=== PATIENT | female | born 1955 | race Caucasian/White ===

== ENCOUNTER 2016-12-20 08:41 | Inpatient (IN) | payer BC ==
[~2016-12-20] VITALS: Ht 157.5 cm; Wt 61.0 kg
[2016-12-20] MEDS ORDERED: HYDROmorphONE 1 MG/ML SYG IV STA ×2 (09:07→10:41)
[2016-12-20] MEDS ORDERED: ONDANSETRON 4 MG INJ IV STA ×2 (09:07→10:41)
[2016-12-20] MEDS ORDERED: SOD CHLORIDE 0.9% 500 ML IV STA (09:07)
--- NOTE | 2016-12-20 09:52 | RADRPT ---
PROCEDURE: XR Chest. CLINICAL INDICATION: Abdominal Pain TECHNIQUE: PA and Lateral views of the chest were obtained. COMPARISON: None. FINDINGS: The cardiomediastinal silhouette is within normal limits. The lungs are clear. No signs of pleural f luid or pneumothorax are seen. The osseous structures and soft tissues are unremarkable. IMPRESSION: No evidence for active cardiopulmonary disease. Physician Benedict Date Time Electronically viewed and signed by Kong Jaquez Physician on 12/20/2016 09:52 ML/
--- NOTE | 2016-12-20 10:20 | RADRPT ---
PROCEDURE: Right upper quadrant abdominal ultrasound. CLINICAL INDICATION: Abdominal pain TECHNIQUE: Barney scale and color doppler ultrasound images of the right upper quadrant of the abdom en. COMPARISON: None FINDINGS: Pancreas: Visualized portions appear of normal echogenicity without focal lesions. Liver: Morphology: The right lobe of the liver is elongated measuring up to 17.9 cm which may reflect Ried el's lobe configuration. Contour:Normal, no evidence of nodularity. Echogenicity: Normal. Focal lesions:None. Main portal vein: Patent with hepatopetal flow. Biliary System: Gallbladder wall: Normal thickness. Gallstones: None. Intrahepatic bile ducts: Normal caliber. Common bile duct diameter (mm): 4.7 Kidneys: Right length (cm) : 9.5 Right cortical thickness: Normal. Echogenicity: Normal. Hydronephrosis: None. Renal calculi: None. Focal lesions: None. Free fluid/ascites: None. Abdominal aorta: Not visualized by the vacuum forming machine operator. Other findings: None. IMPRESSION: Normal gallbladder without gallstones. Normal examination. RPTAT: AADD .Philip Reis MD, MD Date Time Electronically viewed and signed by .Philip Reis MD, MD on 12/20/2016 10:19 .B/
--- NOTE | 2016-12-20 10:20 | RADRPT ---
PROCEDURE: Right upper quadrant abdominal ultrasound. CLINICAL INDICATION: Abdominal pain TECHNIQUE: Barney scale and color doppler ultrasound images of the right upper quadrant of the abdom en. COMPARISON: None FINDINGS: Pancreas: Visualized portions appear of normal echogenicity without focal lesions. Liver: Morphology: The right lobe of the liver is elongated measuring up to 17.9 cm which may reflect Ried el's lobe configuration. Contour:Normal, no evidence of nodularity. Echogenicity: Normal. Focal lesions:None. Main portal vein: Patent with hepatopetal flow. Biliary System: Gallbladder wall: Normal thickness. Gallstones: None. Intrahepatic bile ducts: Normal caliber. Common bile duct diameter (mm): 4.7 Kidneys: Right length (cm) : 9.5 Right cortical thickness: Normal. Echogenicity: Normal. Hydronephrosis: None. Renal calculi: None. Focal lesions: None. Free fluid/ascites: None. Abdominal aorta: Not visualized by the sectional belt mold assembler. Other findings: None. IMPRESSION: Normal gallbladder without gallstones. Normal examination. RPTAT: AADD .Philip Reis MD, MD Date Time Electronically viewed and signed by .Philip Reis MD, MD on 12/20/2016 10:19 .B/
--- NOTE | 2016-12-20 10:20 | RADRPT ---
PROCEDURE: Right upper quadrant abdominal ultrasound. CLINICAL INDICATION: Abdominal pain TECHNIQUE: Barney scale and color doppler ultrasound images of the right upper quadrant of the abdom en. COMPARISON: None FINDINGS: Pancreas: Visualized portions appear of normal echogenicity without focal lesions. Liver: Morphology: The right lobe of the liver is elongated measuring up to 17.9 cm which may reflect Ried el's lobe configuration. Contour:Normal, no evidence of nodularity. Echogenicity: Normal. Focal lesions:None. Main portal vein: Patent with hepatopetal flow. Biliary System: Gallbladder wall: Normal thickness. Gallstones: None. Intrahepatic bile ducts: Normal caliber. Common bile duct diameter (mm): 4.7 Kidneys: Right length (cm) : 9.5 Right cortical thickness: Normal. Echogenicity: Normal. Hydronephrosis: None. Renal calculi: None. Focal lesions: None. Free fluid/ascites: None. Abdominal aorta: Not visualized by the multi punch operator. Other findings: None. IMPRESSION: Normal gallbladder without gallstones. Normal examination. RPTAT: AADD .Philip Reis MD, MD Date Time Electronically viewed and signed by .Philip Reis MD, MD on 12/20/2016 10:19 .B/
[2016-12-20] MEDS ORDERED: SIMV20TA PO (10:53)
[2016-12-20] MEDS ORDERED: MIRA50TA PO (10:53)
[2016-12-20] MEDS ORDERED: LEVO50TA83 PO (10:53)
[2016-12-20] MEDS ORDERED: BUPR200T2 PO (10:53)
[2016-12-20] MEDS ORDERED: ESTR-19 PO (10:54)
[2016-12-20] MEDS ORDERED: ASPI81TA3 PO (10:54)
[2016-12-20] MEDS ORDERED: IOHEXOL 300MG/ML 150 ML BTL ONE (11:29)
[2016-12-20] MEDS ORDERED: SOD CHLORIDE 0.9% 100 ML ONE (11:29)
[2016-12-20] MEDS ORDERED: DIPHENHYDRAMINE 50 MG INJ IV ONE (11:30)
--- NOTE | 2016-12-20 11:59 | RADRPT ---
PROCEDURE: CTA Chest with contrast and with 3-D reconstructions CLINICAL INDICATION: Chest pain, right flank pain, pulmonary emboli TECHNIQUE: The study was performed utilizing multidetector CT scanner. Direct spiral axial section s were obtained from the thoracic inlet to the upper abdomen with the use of intravenous contrast ma terial (100 cc of Omnipaque-300). Sagittal, coronal and 3-D reformations were obtained. The images w ere reviewed on a PACS workstation. DLP 707.64 mGycm CTDIvol 16.90, 9.79, 6.18 mGy One or more of the following dose reduction techniques were used: - Automated exposure control. - Adjustment of the mA and/or kV according to patient size. - Use of iterative reconstruction technique. COMPARISON: No prior studies are available for comparison. FINDINGS: There are no pulmonary emboli. There is a 1 cm left thyroid hypodensity. The lungs are clear. There is a 3 mm subpleural right upper lobe nodule on series 3, image 70 latera lly. There is a 3 mm right perifissural nodule on image 130. There is minimal pulmonary vascular con gestion. There is no pleural fluid. There is no pneumothorax. Heart size is within normal limits. There is no pericardial fluid. The aorta is within normal limi ts. There are no enlarged axillary or mediastinal lymph nodes. The visualized portions of the upper abdomen are unremarkable. Osseous and soft tissue structures are within normal limits. IMPRESSION: No CT evidence for pulmonary embolus. Minimal pulmonary vascular congestion. 3 mm right lung nodules are noted. 1 cm left thyroid hypodensity can be further evaluated with a non emergent thyroid sonogram. RPTAT: EE Physician Leonel Date Time Electronically viewed and signed by Jony Mcmillan Physician on 12/20/2016 11:59 /
--- NOTE | 2016-12-20 12:18 | RADRPT ---
PROCEDURE: CT abdomen and pelvis with contrast and with 3-D reconstructions CLINICAL INDICATION: Right flank pain TECHNIQUE: CT scan of the abdomen and pelvis with intravenous (100 cc of Omnipaque-300) contrast w as performed on a multislice CT scanner. 3-D sagittal and coronal reformatted images were obtained f rom the axial source images. DLP 707.64 mGycm CTDIvol 16.90, 9.79, 6.18 mGy One or more of the following dose reduction techniques were used: - Automated exposure control. - Adjustment of the mA and/or kV according to patient size. - Use of iterative reconstruction technique. COMPARISON: None. FINDINGS: The visualized lung bases are unremarkable. The liver is homogenous in attenuation. There are no focal liver lesions. There is no intrahepatic or extrahepatic biliary ductal dilatation. The gallbladder is within normal limits. The spleen, pancreas, and adrenal glands are within normal limits. The kidneys are symmetric and without focal lesions. There are no renal calculi. There is no obstruc tive uropathy. There are no dilated or thickened loops of small bowel. The appendix is within normal limits. There are colonic diverticula without evidence of diverticulitis. There is nonspecific mild thickening of the mendoza of the transverse colon which begins at the hepatic flexure and ends at the splenic flexur e. The aorta is within normal limits. There are no enlarged mesenteric, periaortic, or retroperitoneal lymph nodes. The bladder is within normal limits. There is no free air. There is no free fluid. There are no enlarged intrapelvic or inguinal lymph nodes. Osseous and soft tissue structures are unremarkable. IMPRESSION: Mild nonspecific thickening of the mendoza of the transverse colon suggests colitis. Clinical correlat ion is recommended. Normal appendix. No small bowel obstruction. No renal/ureteral calculi or hydronephrosis. RPTAT: EE Physician Leonel Date Time Electronically viewed and signed by Physician Leonel on 12/20/2016 12:17 /
--- NOTE | 2016-12-20 12:44 | ERD ---
ER Documentation Chief Complaint Chief Complaint RIGHT FLANK PAIN SINCE YESTERDAY HPI This is a very pleasant 61-year-old female who presents the emergency room with epigastric pain in the right flank and back pain. She states the symptoms started yesterday. The pain is constant approximately 8 out of 10. She also describes a mild shortness of breath and pleuritic discomfort. She had a recent long trip approximately 3-4 weeks ago. The patient denies history of DVT and pulmonary embolism, no fevers chills or cough, no nausea or vomiting and no diarrhea or constipation. ROS All systems reviewed and are negative except as per history of present illness. Medications Home Meds Reported Medications Estrogens,Conj/Bazedoxifene (Duavee 0.45-20 mg Tablet) 1 Each Tablet, 1 EACH PO DAILY, TAB 12/20/16 Aspirin* (Aspirin* Chew) 81 Mg Tab.chew, 81 MG PO DAILY, TAB.CHEW 12/20/16 Mirabegron (Myrbetriq) 50 Mg Tab.er.24h, 50 MG PO DAILY, TAB 12/20/16 Simvastatin* (Zocor*) 20 Mg Tablet, 20 MG PO QHS, #30 TAB 12/20/16 Bupropion Hcl* (Wellbutrin SR*) 200 Mg Tablet.sa, 200 MG PO DAILY, TAB.SA 12/20/16 Levothyroxine Sodium* (Synthroid*) 50 Mcg Tablet, 50 MCG PO BEFORE BREAKFAST, # 30 TAB 12/20/16 Allergies Allergies: Coded Allergies: codeine (Verified Adverse Reaction, Unknown, NAUSEA, 12/20/16) PMhx/Soc History of Surgery: Yes (umbilical and inguinal hernia repair) Anesthesia Reaction: No Hx Neurological Disorder: No Hx Respiratory Disorders: No Hx Cardiac Disorders: No Hx Psychiatric Problems: Yes (depression) Hx Miscellaneous Medical Probl: No Hx Alcohol Use: No Hx Substance Use: No Hx Tobacco Use: No Smoking Status: Never smoker FmHx Family History: No diabetes Physical Exam Vitals Vital Signs Date Time Temp Pulse Resp B/P Pulse Ox O2 Delivery O2 Flow Rate FiO2 12/20/16 11:21 58 18 114/65 98 Room Air 12/20/16 08:43 98.4 81 19 118/73 96 Physical Exam General: Well developed, well nourished, slightly uncomfortable Head: Normocephalic, atraumatic. Eyes: Pupils equally reactive, EOM intact ENT: Moist mucous membranes Neck: Supple, no lymphadenopathy Respiratory: Lungs clear bilaterally, no distress Cardiovascular: RRR, no murmurs, rubs, or gallops Abdominal: Soft, moderate reproducible epigastric tenderness without tenderness to the right upper quadrant, negative Castillo sign but no tenderness to McBurney's point. No pulsatile mass. : Deferred MSK: No edema, no unilateral swelling, 5/5 strength, no pulse deficits Neurologic: Alert and oriented, moving all extremities, normal speech, no focal weakness, no cerebellar signs Skin: No rash Psych: Normal mood Result Diagram: 12/20/1691912/20/16919 Results 24 hrs Laboratory Tests Test 12/20/16 09:20 White Blood Count 9.010^3/ul Red Blood Count 4.4610^6/ul Hemoglobin 13.4g/dl Hematocrit 39.6% Mean Corpuscular Volume 88.8fl Mean Corpuscular Hemoglobin 30.0pg Mean Corpuscular Hemoglobin Concent 33.8g/dl Red Cell Distribution Width 12.8% Platelet Count 18082^3/UL Mean Platelet Volume 14.2fl Neutrophils % 71.7% Lymphocytes % 19.2% Monocytes % 6.5% Eosinophils % 2.0% Basophils % 0.4% Nucleated Red Blood Cells % 0.0/100WBC Neutrophils # 6.410^3/ul Lymphocytes # 1.710^3/ul Monocytes # 0.610^3/ul Eosinophils # 0.210^3/ul Basophils # 0.010^3/ul Nucleated Red Blood Cells # 0.010^3/ul Prothrombin Time 12.9Sec Prothrombin Time Ratio 1.0 INR International Normalized Ratio 0.97 Activated Partial Thromboplast Time 28.6Sec Urine Color STRAW Urine Clarity CLEAR Urine pH 7.0 Urine Specific [place] 1.006 Urine Ketones NEGATIVEmg/dL Urine Nitrite NEGATIVEmg/dL Urine Bilirubin NEGATIVEmg/dL Urine Urobilinogen NEGATIVEmg/dL Urine Leukocyte Esterase NEGATIVELeu/ul Urine Microscopic RBC 0/HPF Urine Microscopic WBC 1/HPF Urine Bacteria FEW/HPF Urine Hemoglobin 1+mg/dL Urine Glucose NEGATIVEmg/dL Urine Total Protein NEGATIVEmg/dl Sodium Level 142mmol/L Potassium Level 4.0mmol/L Chloride Level 107mmol/L Carbon Dioxide Level 26mmol/L Anion Gap 13 Blood Urea Nitrogen 18mg/dl Creatinine 0.78mg/dl Glucose Level 96mg/dl Calcium Level 9.6mg/dl Total Bilirubin 0.6mg/dl Direct Bilirubin 0.00mg/dl Indirect Bilirubin 0.6mg/dl Aspartate Amino Transf (AST/SGOT) 25IU/L Alanine Aminotransferase (ALT/SGPT) 32IU/L Alkaline Phosphatase 52IU/L Troponin I < 0.012ng/ml Total Protein 8.0g/dl Albumin 4.3g/dl Globulin 3.70g/dl Albumin/Globulin Ratio 1.16 Lipase 73U/L Current Medications Medications (Trade) Dose Ordered Sig/Leatha Route PRN Reason Start Time Stop Time Status Last Admin Dose Admin Sodium Chloride (NS) 500 ml @ 500 mls/hr Q1H STAT IV 12/20/16 09:07 12/20/16 10:06 DC 12/20/16 09:32 Hydromorphone HCl (Dilaudid) 0.5 mg ONCE STAT IV 12/20/16 09:07 12/20/16 09:09 DC 12/20/16 09:32 Ondansetron HCl (Zofran Inj) 4 mg ONCE STAT IV 12/20/16 09:07 12/20/16 09:09 DC 12/20/16 09:31 Hydromorphone HCl (Dilaudid) 1 mg ONCE STAT IV 12/20/16 10:41 12/20/16 10:43 DC 12/20/16 10:46 Ondansetron HCl (Zofran Inj) 4 mg ONCE STAT IV 12/20/16 10:41 12/20/16 10:43 DC 12/20/16 10:46 Diphenhydramine HCl (Benadryl) 25 mg ONCE ONCE IV 12/20/16 11:30 12/20/16 11:31 DC 12/20/16 11:09 IV Flush 10 ml 10 ml STK-MED ONCE .ROUTE 12/20/16 11:29 12/20/16 11:30 DC 12/20/16 11:56 Sodium Chloride (NS) 100 ml @ ud STK-MED ONCE .ROUTE 12/20/16 11:29 12/20/16 11:30 DC 12/20/16 11:55 Iohexol (Omnipaque 300mg/ ml) 150 ml STK-MED ONCE .ROUTE 12/20/16 11:29 12/20/16 11:30 DC 12/20/16 11:54 Ciprofloxacin (Cipro) 500 mg ONCE ONCE PO 12/20/16 13:00 12/20/16 13:01 Metronidazole (Flagyl) 500 mg ONCE ONCE PO 12/20/16 13:00 12/20/16 13:01 Ondansetron HCl (Zofran Inj) 4 mg BRIDGE ORDER PRN IV NAUSEA AND/OR VOMITING 12/20/16 13:00 12/21/16 12:59 Acetaminophen (Tylenol Tab) 650 mg ER BRIDGE PRN PO MILD PAIN/FEVER 12/20/16 13:00 12/21/16 12:59 Procedures/MDM EKG, MONITORS, & DIAGNOSTIC IMAGING: EKG: I reviewed and interpreted a 12-lead EKG. Rhythm: Normal sinus rhythm Ectopy: None Intervals: No abnormalities ST segments: No elevations or depressions T waves: No contiguous inversions Chest x-ray: I reviewed and interpreted a 1 view of the chest Mediastinum: No enlargement Cardiac silhouette: No cardiomegaly Airspace: Clear lung lamb bilaterally without evidence of pneumothorax Bones: No evidence of fracture Gallbladder ultrasound: IMPRESSION: Normal gallbladder without gallstones. Normal examination. RPTAT: AADD CT chest abdomen and pelvis IMPRESSION: No CT evidence for pulmonary embolus. Minimal pulmonary vascular congestion. 3 mm right lung nodules are noted. 1 cm left thyroid hypodensity can be further evaluated with a non emergent thyroid sonogram. IMPRESSION: Mild nonspecific thickening of the mendoza of the transverse colon suggests colitis. Clinical correlation is recommended. Normal appendix. No small bowel obstruction. No renal/ureteral calculi or hydronephrosis. RPTAT: EE LAB INTERPRETATION: No leukocytosis, no left shift, no coagulopathy, no evidence of hepatobiliary obstruction, negative troponin, normal urinalysis MEDICAL DECISION MAKING: The patient presents with epigastric and back pain. The symptoms started yesterday and she appears to be uncomfortable. She states that her doctor told her to come to the emergency room because he was concerned about a possible blood clot. The patient does not have any significant risk factors other than recent flight to [place]. The patient seems to be describing epigastric abdominal discomfort. Consider possible hepatobiliary process or biliary colic or acute cholecystitis. Very low clinical concern for aortic dissection given limited risk factors, no significant hypertension and no migratory discomfort. Patient will benefit from broad workup. We discussed initially checking blood work and an ultrasound if negative then moving onto CAT scan given otherwise low concern for cardiac or pulmonary process. The patient was agreeable. ER COURSE: Patient's EKG and troponin were negative. She continued to have pain that was only improved with the second dose of Dilaudid. She is now 3 out of 10. The patient did require CT imaging. There is no evidence of pulmonary embolism, no subtle signs or symptoms concerning for dissection. The patient has no evidence of pneumonia. Her CT imaging did show evidence of transverse colitis. This is nonspecific. She has no risk factors for mesenteric ischemia and at this point does not have any pain out of proportion. She has no evidence of metabolic acidosis and additionally had CT with IV contrast. Mesenteric ischemia seems extremely unlikely. The colitis could possibly be viral given the patient's amount of pain I believe a short course of Cipro and Flagyl would be reasonable. The patient is agreeable. We discussed inpatient versus outpatient management and the patient feels uncomfortable going home. Given her age and the persistence of pain I believe hospitalization for serial abdominal exams is appropriate. No indication for emergent surgery consultation at this point. I kept the patient and/or family informed of laboratory and diagnostic imaging results throughout the emergency room course. DISPOSITION PLAN: Medical surgical admission CONSULTATION: Accepting care team and consultations: I discussed the current laboratory data, diagnostic imaging and emergency care provided. Admitting team: Dr. Olvera Admitting team indication: Insurance directed Departure Diagnosis: Primary Impression: Abdominal pain Abdominal location: epigastric Qualified Code: R10.13 - Epigastric pain Additional Impression: Colitis Condition: Stable DEANNA SNYDER MD Dec 20, 2016 12:44
[2016-12-20] MEDS ORDERED: metroNIDAZOLE 500 MG TAB PO ONE (13:00)
[2016-12-20] MEDS ORDERED: ONDANSETRON 4 MG INJ IV PRN (13:00)
[2016-12-20] MEDS ORDERED: CIPROFLOXACIN 500 MG TAB PO ONE (13:00)
[2016-12-20] MEDS ORDERED: ACETAMINOPHEN 325 MG TAB PO PRN (13:00)
[2016-12-20 14:07] VITALS: Ht 157.5 cm; Wt 61.0 kg
--- NOTE | 2016-12-20 14:39 | CONS ---
Date/Time of Note Date/Time of Note DATE: 12/20/16 TIME: 14:17 Assessment/Plan Assessment/Plan Chief Complaint/Hosp Course Summary Assessment and Plan: Assessment: Right flank pain Possible colitis R/o ischemic colitis Plan: Start PPI therapy NPO after midnight plan for colonoscopy tomorrow Endoscopy - risks/benefits/alternatives/indications of procedure and sedation/ anesthesia discussed with patient who states understanding and gives informed consent to proceed. PARQ held and questions were answered. She is seen in collaboration with Chief Complaint/Reason for Visit: Right flank pain History of Present Illness: This is a pleasant 61-year-old female who has been admitted to the ER with right flank pain 1 day. She notes pain initially started as epigastric and throughout the day difused to upper abdomin, finally focusing in the right flank area. Her pain is described as being constant 5-6/10 on pain scale. She tried taking Bentyl without help, took an antiacid, with minimal relief. She notes pain is worse with movement, coughing, and deep breathing. She currently denies nausea, vomiting, hematemesis, hematochezia, unintentional weight loss, or diarrhea. Complains of ongoing constipation she maintains a high-fiber diet and stool softeners which helps her to have bowel movements about once a day. Denies recent antibiotic use. Did travel to [place] about a week ago. Complete abdominal ultrasound negative for gallstones or obstruction. CAT scan abdomen and pelvis revealed mild nonspecific thickening of the transverse colon wall. She had an EGD 5 years showing gastritis, Colonoscopy 5 years ago, she thinks was negative but is unsure if polyps were present. No family history of colon cancer. With clinical presentation one must consider ischemic colitis, will plan colonoscopy tomorrow Past Medical History: Gastritis Depression Upper endoscopy/colonoscopy 5 years ago gastritis/thinks colon was negative but cannot remember if she had polyps Allergies: Codeine Family History: No family history of colon cancer Social History: EtOH/3 glasses of wine per week Denies smoking Denies drug use Problems: Consultation Date/Type/Reason Admit Date/Time Dec 20, 2016 at 12:33 Date of Consultation: Dec 20, 2016 Type of Consultation: GI Reason for Consultation Possible colitis/ mild non-specific thickening of transverse wall Eyes: no complaints ENT: other (Dry mouth) Respiratory: shortness of breath (improved) Cardiovascular: no complaints Gastrointestinal: constipation, pain, passing stool, No blood, No decreased appetite, No diarrhea, No flatus, No nausea, No vomiting Genitourinary: no complaints Skin: no complaints Neurologic: dizziness (from medication) Past Medical History Medical History: GERD, other (depression) Past Surgical History Past Surgical Hx: endoscopy, other (umbilical and inguinal hernia repair) Family History Significant Family History: no pertinent family hx Social History Alcohol Use: other (3 glasses of wine/week) Smoking Status: Never smoker Drug Use: none Exam/Review of Systems Vital Signs Vitals Vital Signs Date Time Temp Pulse Resp B/P Pulse Ox O2 Delivery O2 Flow Rate FiO2 12/20/16 11:21 58 18 114/65 98 Room Air 12/20/16 08:43 98.4 Exam Constitutional: alert, oriented Psych: no complaints Head: normocephalic Eyes: nl conjunctiva, nl lids ENMT: nl external ears & nose Neck: supple Respiratory: clear to auscultation, normal air movement Cardiovascular: regular rate and rhythm Gastrointestinal: bowel sounds, soft, tender, No ascites, No distended, No firm, No hepatomegaly, No mass, No rebound or guarding, No splenomegaly, No surgical scars Musculoskeletal: nl extremities to inspection Extremities: normal pulses Skin: nl turgor Results Result Diagram: 12/20/1691912/20/16919 Results 24 hrs Laboratory Tests Test 12/20/16 09:20 White Blood Count 9.0 Red Blood Count 4.46 Hemoglobin 13.4 Hematocrit 39.6 Mean Corpuscular Volume 88.8 Mean Corpuscular Hemoglobin 30.0 Mean Corpuscular Hemoglobin Concent 33.8 Red Cell Distribution Width 12.8 Platelet Count 162 Mean Platelet Volume 14.2 H Neutrophils % 71.7 Lymphocytes % 19.2 Monocytes % 6.5 Eosinophils % 2.0 Basophils % 0.4 Nucleated Red Blood Cells % 0.0 Neutrophils # 6.4 Lymphocytes # 1.7 Monocytes # 0.6 Eosinophils # 0.2 Basophils # 0.0 Nucleated Red Blood Cells # 0.0 Prothrombin Time 12.9 Prothrombin Time Ratio 1.0 INR International Normalized Ratio 0.97 Activated Partial Thromboplast Time 28.6 Urine Color STRAW Urine Clarity CLEAR Urine pH 7.0 Urine Specific [place] 1.006 Urine Ketones NEGATIVE Urine Nitrite NEGATIVE Urine Bilirubin NEGATIVE Urine Urobilinogen NEGATIVE Urine Leukocyte Esterase NEGATIVE Urine Microscopic RBC 0 Urine Microscopic WBC 1 Urine Bacteria FEW A Urine Hemoglobin 1+ H Urine Glucose NEGATIVE Urine Total Protein NEGATIVE Sodium Level 142 Potassium Level 4.0 Chloride Level 107 Carbon Dioxide Level 26 Anion Gap 13 Blood Urea Nitrogen 18 Creatinine 0.78 Glucose Level 96 Calcium Level 9.6 Total Bilirubin 0.6 Direct Bilirubin 0.00 Indirect Bilirubin 0.6 Aspartate Amino Transf (AST/SGOT) 25 Alanine Aminotransferase (ALT/SGPT) 32 Alkaline Phosphatase 52 Troponin I < 0.012 Total Protein 8.0 Albumin 4.3 Globulin 3.70 H Albumin/Globulin Ratio 1.16 Lipase 73 Copies To: CC: DARYA MELISSA MD, VICTORIA Dec 20, 2016 14:32
[2016-12-20] MEDS ORDERED: BISACODYL (EC) 5 MG TAB PO ONE (15:00)
[2016-12-20] MEDS: SOD CHLORIDE 0.9% 1,000 ML IV SCH (17:15)
[2016-12-20] MEDS ORDERED: MAGNESIUM CITRATE 300 ML BTL PO ONE (17:30)
[2016-12-20] MEDS ORDERED: NACL 0.9% 3 ML SYG IV SCH (17:30)
[2016-12-20] MEDS ORDERED: BISACODYL (EC) 5 MG TAB PO PRN (17:30)
--- NOTE | 2016-12-20 17:33 | HP ---
Date/Time of Note Date/Time of Note DATE: 12/20/16 TIME: 17:27 Assessment/Plan VTE Prophylaxis VTE Prophylaxis Intervention: heparin, SCD's Assessment/Plan Chief Complaint/Hosp Course Patient is a 61-year-old female who presents with diffuse abdominal pain, found to have transverse colitis Assessment and plan Abdominal pain Transverse colitis Dyslipidemia Depression Hypothyroidism Overactive bladder Constipation -GI has been consulted, prepping for colonoscopy tomorrow, lactic acid negative, -Antibiotics for now, will de-escalate depending on what is found with colonoscopy -Restart medications as able -Pain control -Repeat labs tomorrow -IV fluids Problems: HPI/ROS Admit Date/Time Admit Date/Time Dec 20, 2016 at 12:33 Hx of Present Illness Patient is a 61-year-old female with past medical history significant for dyslipidemia, depression, hypothyroidism, and overactive bladder who presents to [facility] for 1 day onset of diffuse generalized abdominal pain also radiating to the back and to the flank. Patient states that the pain originally started in the epigastric area and then slowly moved to the right and to the back. Patient states that she has tried multiple things such as Bentyl, and bowel rest however nothing relieved the pain and patient decided to go to ED. Patient also states that she has a history of gastritis precipitated by NSAID use as well as her estrogen medication. Patient states that currently her abdominal pain is a 6 out of 10, barely affected by pain medication. Patient currently denies any chest pain, nausea, vomiting, shortness of breath. PMH: Dyslipidemia, gastritis, depression, hypothyroidism, overactive bladder, constipation PSH: Umbilical hernia surgery, inguinal surgery, right knee arthroscopy Meds: Simvastatin, aspirin, bupropion, estrogen, Synthroid, mirabegron ROS Eyes: no complaints ENT: other (Dry mouth) Respiratory: shortness of breath (improved) Cardiovascular: no complaints Gastrointestinal: constipation, pain, passing stool, No blood, No decreased appetite, No diarrhea, No flatus, No nausea, No vomiting Genitourinary: no complaints Skin: no complaints Neurologic: dizziness (from medication) Psychological: no complaints PMH/Family/Social Past Medical History Medical History: GERD, other (depression) Past Surgical History Past Surgical Hx: endoscopy, other (umbilical and inguinal hernia repair) Social History Alcohol Use: other (3 glasses of wine/week) Smoking Status: Never smoker Drug Use: none Exam/Review of Systems Vital Signs Vitals Vital Signs Date Time Temp Pulse Resp B/P Pulse Ox O2 Delivery O2 Flow Rate FiO2 12/20/16 11:21 58 18 114/65 98 Room Air 12/20/16 08:43 98.4 Exam Exam Physical exam General: Patient is laying in bed and answers questions appropriately Mentation: Patient is alert and oriented 4, Head: Normocephalic atraumatic Eyes: EOMI, pupils reactive to light Neck: Supple, nontender, midline Respiratory: Clear to auscultation bilaterally Cardiovascular: regular rate, no obvious murmurs Gastrointestinal: mild tenderness to palpation in the epigastric region, bowel sounds heard. Neurological: Moves all extremities spontaneously Skin: No new skin lesions Labs Result Diagram: 12/20/1691912/20/16919 Medications Medications Current Medications Magnesium Citrate (Citroma) 300 ml ONCE ONCE PO ; Start 12/20/16 at 17:30; Stop 12/20/16 at 17:31 Polyethylene Glycol (Miralax) 119 gm ONCE ONCE PO ; Start 12/20/16 at 18:30; Stop 12/20/16 at 18:31 Pantoprazole 40 mg 40 mg DAILY@06 PO ; Start 12/21/16 at 06:00 Sodium Chloride (NS) 1,000 ml @ 70 mls/hr [id number] IV ; Start 12/20/16 at 17:15 Ondansetron HCl (Zofran Inj) 4 mg Q6H PRN IV NAUSEA AND/OR VOMITING; Start at 17:30 Acetaminophen (Tylenol Tab) 650 mg Q6H PRN PO PAIN LEVEL 1-3 OR FEVER; Start 12/20/16 at 17:30 Hydromorphone HCl (Dilaudid) 0.5 mg Q4H PRN IV SEVERE PAIN LEVEL 7-10; Start 12/20/16 at 17:30 Bisacodyl (Dulcolax) 5 mg DAILY PRN PO CONSTIPATION; Start 12/20/16 at 17:30 Heparin Sodium (Porcine) 5000 unit 5,000 unit Q8 SC ; Start 12/20/16 at 22:00 Ceftriaxone Sodium (Rocephin) 50 ml @ 100 mls/hr Q24H IVPB ; Start 12/20/16 at 18:00 Aspirin (Aspirin) 81 mg DAILY PO ; Start 12/21/16 at 09:00 Bupropion HCl (Wellbutrin Sr) 200 mg DAILY PO ; Start 12/21/16 at 09:00 Miscellaneous Information 20 mg QHS PO ; Start 12/20/16 at 21:00; Status UNV BRIAN BHANDARI Dec 20, 2016 17:33
[2016-12-20] MEDS: ACETAMINOPHEN 325 MG TAB PO PRN (18:13)
[2016-12-20] MEDS: CEFTRIAXONE 1 GM/50 ML (PMX) 50 ML IVPB SCH (18:23)
[2016-12-20] MEDS ORDERED: POLYETHYLENE GLYCOL 3350 119 GM POWDER PO ONE (18:30)
[2016-12-20 19:50] VITALS: BP 104/57; RESP 18
[2016-12-20] MEDS: ATORVASTATIN 10 MG TAB PO SCH (21:00)
[2016-12-20] MEDS: HEPARIN 5,000 UNIT/0.5 ML VIAL SC SCH (21:47)
[2016-12-21] VITALS (11 sets, daily range): BP systolic 91–118; BP diastolic 54–69; PULSE 56–64; RESP 15–22
[2016-12-21] MEDS: ACETAMINOPHEN 325 MG TAB PO PRN ×3 (00:12→08:53)
[2016-12-21] MEDS: ONDANSETRON 4 MG INJ IV PRN ×2 (00:13→09:04)
[2016-12-21] MEDS ORDERED: POLYETHYLENE GLYCOL 3350 119 GM POWDER PO ONE (06:00)
[2016-12-21] MEDS: HEPARIN 5,000 UNIT/0.5 ML VIAL SC SCH ×3 (06:00→21:56)
[2016-12-21] MEDS: LEVOTHYROXINE 50 MCG TAB PO SCH (06:46)
[2016-12-21] MEDS ORDERED: IBUPROFEN 600 MG TAB PO PRN (07:00)
[2016-12-21] MEDS ORDERED: SUMATRIPTAN 6 MG/0.5 ML INJ SC ONE (07:30)
[2016-12-21] MEDS ORDERED: BISACODYL (EC) 5 MG TAB PO ONE (08:00)
[2016-12-21] MEDS: BUPROPION (SR) 100 MG TAB PO SCH (08:52)
[2016-12-21] MEDS: PANTOPRAZOLE (EC) 40 MG TAB PO SCH (08:52)
[2016-12-21] MEDS: ASPIRIN 81 MG TAB PO SCH (08:55)
[2016-12-21] MEDS: SOD CHLORIDE 0.9% 1,000 ML IV SCH (09:06)
--- NOTE | 2016-12-21 09:20 | PN ---
Date/Time of Note Date/Time of Note DATE: 12/21/16 TIME: 09:13 Assessment/Plan VTE Prophylaxis VTE Prophylaxis Intervention: ambulation, SCD's Lines/Catheters IV Catheter Type (from Nrs): Saline Lock Assessment/Plan Chief Complaint/Hosp Course Summary Assessment and Plan: Assessment: Right flank pain Possible colitis R/o ischemic colitis Plan: Plan for colonoscopy today clear liquids until 1000 anti-emetic for nausea Patient seen in collaboration with Subjective: Course reviewed with nursing staff Patient interviewed and examined All labs, imaging and other results reviewed The patient c/o nausea with prep- states only can take prep with ice medication given for migraine, antiemetic medication as needed. Pt currently states stool is liquid and dark yellow. Encourage patient to finish prep for best visualization for colonoscopy. She continues to c/o abd pain now described as a diffuse abd pain. Problems: Subjective 24 Hr Interval Summary Constitutional: other (C/o migraine ) Eyes: no complaints ENT: no complaints Respiratory: no complaints Cardiovascular: no complaints Gastrointestinal: diarrhea (from colonoscopy prep), nausea, pain (difuse abdominal pain), passing stool, No blood, No decreased appetite, No vomiting Genitourinary: no complaints Skin: no complaints Neurologic: headache Exam/Review of Systems Vital Signs Vitals Vital Signs Date Time Temp Pulse Resp B/P Pulse Ox O2 Delivery O2 Flow Rate FiO2 12/21/16 08:00 98.3 63 18 108/69 95 12/20/16 11:21 Room Air Intake and Output 12/20/16 12/20/16 12/21/16 15:00 23:00 07:00 Intake Total 970 ml 1300 ml Output Total 350 ml Balance 620 ml 1300 ml Results Result Diagram: 12/21/16 0524 12/21/16 0524 Results 24 hrs Laboratory Tests Test 12/20/16 09:20 12/20/16 14:46 12/21/16 05:24 White Blood Count 9.0 10.2 Red Blood Count 4.46 3.87 L Hemoglobin 13.4 11.2 L Hematocrit 39.6 34.8 L Mean Corpuscular Volume 88.8 89.9 Mean Corpuscular Hemoglobin 30.0 28.9 L Mean Corpuscular Hemoglobin Concent 33.8 32.2 Red Cell Distribution Width 12.8 13.2 Platelet Count 162 131 L Mean Platelet Volume 14.2 H 14.9 H Neutrophils % 71.7 73.7 Lymphocytes % 19.2 16.7 Monocytes % 6.5 8.1 Eosinophils % 2.0 1.0 Basophils % 0.4 0.3 Nucleated Red Blood Cells % 0.0 0.0 Neutrophils # 6.4 7.5 Lymphocytes # 1.7 1.7 Monocytes # 0.6 0.8 Eosinophils # 0.2 0.1 Basophils # 0.0 0.0 Nucleated Red Blood Cells # 0.0 0.0 Prothrombin Time 12.9 Prothrombin Time Ratio 1.0 INR International Normalized Ratio 0.97 Activated Partial Thromboplast Time 28.6 Urine Color STRAW Urine Clarity CLEAR Urine pH 7.0 Urine Specific [place] 1.006 Urine Ketones NEGATIVE Urine Nitrite NEGATIVE Urine Bilirubin NEGATIVE Urine Urobilinogen NEGATIVE Urine Leukocyte Esterase NEGATIVE Urine Microscopic RBC 0 Urine Microscopic WBC 1 Urine Bacteria FEW A Urine Hemoglobin 1+ H Urine Glucose NEGATIVE Urine Total Protein NEGATIVE Sodium Level 142 141 Potassium Level 4.0 3.3 L Chloride Level 107 107 Carbon Dioxide Level 26 28 Anion Gap 13 9 Blood Urea Nitrogen 18 11 Creatinine 0.78 0.61 Glucose Level 96 95 Calcium Level 9.6 8.5 Total Bilirubin 0.6 0.3 Direct Bilirubin 0.00 0.00 Indirect Bilirubin 0.6 0.3 Aspartate Amino Transf (AST/SGOT) 25 20 Alanine Aminotransferase (ALT/SGPT) 32 36 Alkaline Phosphatase 52 44 Troponin I < 0.012 Total Protein 8.0 6.5 # Albumin 4.3 3.3 # Globulin 3.70 H 3.20 Albumin/Globulin Ratio 1.16 1.03 Lipase 73 Lactic Acid Level 0.8 Medications Medications Current Medications Pantoprazole 40 mg 40 mg DAILY@06 PO Last administered on 12/21/16 08:52; Admin Dose 40 MG; Start 12/21/16 at 06:00 Sodium Chloride (NS) 1,000 ml @ 70 mls/hr [id number] IV Last administered on 09:06; Admin Dose 70 MLS/HR; Start 12/20/16 at 17:15 Ondansetron HCl (Zofran Inj) 4 mg Q6H PRN IV NAUSEA AND/OR VOMITING Last administered on 12/21/16 09:04; Admin Dose 4 MG; Start 12/20/16 at 17:30 Acetaminophen (Tylenol Tab) 650 mg Q6H PRN PO PAIN LEVEL 1-3 OR FEVER Last administered on 12/21/16 08:53; Admin Dose 650 MG; Start 12/20/16 at 17:30 Hydromorphone HCl (Dilaudid) 0.5 mg Q4H PRN IV SEVERE PAIN LEVEL 7-10; Start 12/20/16 at 17:30 Bisacodyl (Dulcolax) 5 mg DAILY PRN PO CONSTIPATION; Start 12/20/16 at 17:30 Heparin Sodium (Porcine) 5000 unit 5,000 unit Q8 SC ; Start 12/20/16 at 22:00 Ceftriaxone Sodium (Rocephin) 50 ml @ 100 mls/hr Q24H IVPB Last administered on 12/20/16 18:23; Admin Dose 100 MLS/HR; Start 12/20/16 at 18:00 Aspirin (Aspirin) 81 mg DAILY PO ; Start 12/21/16 at 09:00 Bupropion HCl (Wellbutrin Sr) 200 mg DAILY PO Last administered on 12/21/16 08:52; Admin Dose 200 MG; Start 12/21/16 at 09:00 Atorvastatin Calcium (Lipitor) 10 mg DAILY@21 PO ; Start 12/20/16 at 21:00 Ibuprofen (Motrin) 600 mg Q6H PRN PO PAIN; Start 12/21/16 at 07:00 ALEXANDRA SAWYER Dec 21, 2016 09:20
[2016-12-21] MEDS ORDERED: POTASSIUM CHLORIDE 250 ML IVPB ONE (13:00)
[2016-12-21] MEDS ORDERED: PROPOFOL 20 ML ONE ×2 (16:14→17:48)
[2016-12-21] MEDS ORDERED: FENTAnyl 50 MCG/ML VIAL ONE (16:14)
[2016-12-21] MEDS ORDERED: ONDANSETRON 4 MG INJ ONE (16:29)
[2016-12-21] MEDS ORDERED: METOCLOPRAMIDE 10 MG INJ ONE (16:29)
--- NOTE | 2016-12-21 16:29 | PN ---
Date/Time of Note Date/Time of Note DATE: 12/21/16 TIME: 16:26 Assessment/Plan VTE Prophylaxis VTE Prophylaxis Intervention: ambulation Lines/Catheters IV Catheter Type (from Nrs): Peripheral IV Assessment/Plan Chief Complaint/Hosp Course Patient is a 61-year-old female who presents with diffuse abdominal pain, found to have transverse colitis Assessment and plan Abdominal pain Transverse colitis Dyslipidemia Depression Hypothyroidism Overactive bladder Constipation -GI has been consulted, colonoscopy planned today -Antibiotics for now, will de-escalate depending on what is found with colonoscopy -Restart medications as able -Pain control -Repeat labs tomorrow -IV fluids Problems: Subjective 24 Hr Interval Summary Free Text/Dictation still mild/mod pain Exam/Review of Systems Vital Signs Vitals Vital Signs Date Time Temp Pulse Resp B/P Pulse Ox O2 Delivery O2 Flow Rate FiO2 12/21/16 13:42 98.6 63 16 103/60 98 12/20/16 11:21 Room Air Intake and Output 12/20/16 12/20/16 12/21/16 15:00 23:00 07:00 Intake Total 970 ml 1300 ml Output Total 350 ml Balance 620 ml 1300 ml Exam Physical exam General: Patient is laying in bed and answers questions appropriately Mentation: Patient is alert and oriented 4, Head: Normocephalic atraumatic Eyes: EOMI, pupils reactive to light Neck: Supple, nontender, midline Respiratory: Clear to auscultation bilaterally Cardiovascular: regular rate, no obvious murmurs Gastrointestinal: mild tenderness to palpation in the epigastric region, bowel sounds heard. Neurological: Moves all extremities spontaneously Skin: No new skin lesions Results Result Diagram: 12/21/1624 12/21/16 0524 Results 24 hrs Laboratory Tests Test 12/21/16 05:24 White Blood Count 10.2 Red Blood Count 3.87 L Hemoglobin 11.2 L Hematocrit 34.8 L Mean Corpuscular Volume 89.9 Mean Corpuscular Hemoglobin 28.9 L Mean Corpuscular Hemoglobin Concent 32.2 Red Cell Distribution Width 13.2 Platelet Count 131 L Mean Platelet Volume 14.9 H Neutrophils % 73.7 Lymphocytes % 16.7 Monocytes % 8.1 Eosinophils % 1.0 Basophils % 0.3 Nucleated Red Blood Cells % 0.0 Neutrophils # 7.5 Lymphocytes # 1.7 Monocytes # 0.8 Eosinophils # 0.1 Basophils # 0.0 Nucleated Red Blood Cells # 0.0 Sodium Level 141 Potassium Level 3.3 L Chloride Level 107 Carbon Dioxide Level 28 Anion Gap 9 Blood Urea Nitrogen 11 Creatinine 0.61 Glucose Level 95 Calcium Level 8.5 Total Bilirubin 0.3 Direct Bilirubin 0.00 Indirect Bilirubin 0.3 Aspartate Amino Transf (AST/SGOT) 20 Alanine Aminotransferase (ALT/SGPT) 36 Alkaline Phosphatase 44 Total Protein 6.5 # Albumin 3.3 # Globulin 3.20 Albumin/Globulin Ratio 1.03 Medications Medications Current Medications Pantoprazole 40 mg 40 mg DAILY@06 PO Last administered on 12/21/16 08:52; Admin Dose 40 MG; Start 12/21/16 at 06:00 Sodium Chloride (NS) 1,000 ml @ 100 mls/hr Q10H IV Last administered on 09:06; Admin Dose 70 MLS/HR; Start 12/20/16 at 17:15 Ondansetron HCl (Zofran Inj) 4 mg Q6H PRN IV NAUSEA AND/OR VOMITING Last administered on 12/21/16 09:04; Admin Dose 4 MG; Start 12/20/16 at 17:30 Acetaminophen (Tylenol Tab) 650 mg Q6H PRN PO PAIN LEVEL 1-3 OR FEVER Last administered on 12/21/16 08:53; Admin Dose 650 MG; Start 12/20/16 at 17:30 Hydromorphone HCl (Dilaudid) 0.5 mg Q4H PRN IV SEVERE PAIN LEVEL 7-10; Start 12/20/16 at 17:30 Bisacodyl (Dulcolax) 5 mg DAILY PRN PO CONSTIPATION; Start 12/20/16 at 17:30 Heparin Sodium (Porcine) 5000 unit 5,000 unit Q8 SC ; Start 12/20/16 at 22:00 Ceftriaxone Sodium (Rocephin) 50 ml @ 100 mls/hr Q24H IVPB Last administered on 12/20/16 18:23; Admin Dose 100 MLS/HR; Start 12/20/16 at 18:00 Aspirin (Aspirin) 81 mg DAILY PO ; Start 12/21/16 at 09:00 Bupropion HCl (Wellbutrin Sr) 200 mg DAILY PO Last administered on 12/21/16 08:52; Admin Dose 200 MG; Start 12/21/16 at 09:00 Atorvastatin Calcium (Lipitor) 10 mg DAILY@21 PO ; Start 12/20/16 at 21:00 Ibuprofen 600 mg 600 mg Q6H PRN PO PAIN; Start 12/21/16 at 07:00 Potassium Chloride (KCl 40 MEQ/250 ML NS) 250 ml @ 62.5 mls/hr ONCE ONCE IVPB Last administered on 12/21/16t 12:39; Admin Dose 62.5 MLS/HR; Start at 13:00; Stop 12/21/16 at 16:59 BRIAN BHANDARI Dec 21, 2016 16:29
[2016-12-21] MEDS ORDERED: DEXAMETHASONE 4 MG/ML 1 ML INJ ONE (16:31)
--- NOTE | 2016-12-21 17:25 | HPN ---
Date/Time of Note Date/Time of Note DATE: 12/21/16 TIME: 16:48 Interval H&P Admission Note Pt. seen H&P reviewed: No system changes DARYA MELISSA MD Dec 21, 2016 17:25
[2016-12-21] MEDS ORDERED: HYOSCYAMINE 0.125 MG SUBL TAB SL PRN (17:30)
--- NOTE | 2016-12-21 17:36 | OPPN ---
Date/Time of Note Date/Time of Note DATE: 12/21/16 TIME: 17:28 Proc Note GI Procedure Date 12/21/16 Indication: other (Abnormal CT with thickened transverse colon) Pre-procedure Diagnosis Abnormal CT with thickened transverse colon Post-procedure Diagnosis Impression: Isolated small ulceration in the descending colon. Biopsies obtained Otherwise normal colonic mucosa particularly in the area of the transverse colon. Random biopsies obtained Small aphthous ulcerations in the terminal ileum with edema and erythema. Rule out ileitis. Biopsies obtained Small internal hemorrhoids Otherwise normal colonoscopy to cecum Plan: Pentasa 1 g 3 times daily Levsin 0.125 mg sublingually as needed for pain Review pathology IBD serology Advance diet as tolerated . Procedure Performed: Colonoscopy (With biopsies. Enteroscopy with biopsies) Surgeon DARYA MELISSA MD See signature line Callisthenics Instructor none Anesthesia Type: MAC Anesthesiologist: DARIEN ESTRELLA MD Tourniquet Time none EBL none Transfusion required none Biopsy 1: Descending colon ulcer Biopsy 2: Terminal ileum multiple ulcers Biopsy 3: Right side of the colon Additional Biopsy: Transverse colon Grafts/Implants none Tubes/Drains none Complication(s) none Disposition: PACU Procedure Description After informed consent, with the patient/relatives understanding the procedure, its indications and potential risks and complications, including but not limited to: Allergic reaction, bleeding, perforation, infection, and after all pertinent questions were answered to the patient's satisfaction, the patient/ relatives signed the witnessed informed consent. Following this, premedication was administered slowly IV push under careful cardiovascular and respiratory monitoring with pulse OXIMETRY, automatic blood pressure, and surveillance system monitor. Once the sedative effect was achieved, the patient was placed in the left lateral decubitus position, digital rectal examination was performed. The colonoscope was then introduced and advanced under visual control throughout all segments of the colon including: []the rectum, sigmoid, descending colon, splenic flexure, transverse colon, hepatic flexure, ascending colon and finally reaching the cecum which was clearly identified by transillumination, finger indentation and the ileocecal valve. Terminal ileum was entered and examined approximately 20 cm. Careful examination of the mucosa of the lower gastrointestinal tract both on insertion as well as withdrawal of the instrument disclosed the following findings: PREPARATION QUALITY: , [fair, procedure completed] RECTAL EXAM: The anorectal area was visualized examined and digital rectal examination performed with the following findings: No evidence of perirectal disease, no masses. COLONIC MUCOSA: The mucosa of all segments of the colon was carefully examined and showed the following findings: There is an isolated 4-5 mm ulceration in the proximal descending colon with surrounding erythema. Biopsies were obtained in a limited fashion of the surrounding erythema. The remainder of the colonic mucosa unremarkable particularly the area of the transverse colon. Random biopsies were obtained of the ascending colon, transverse colon. The terminal ileum was entered and shows small aphthous like ulcerations in areas of erythema and edema. Biopsies were obtained. Moderate-sized internal hemorrhoids are present. Otherwise the examined mucosa appears within normal limits. There is no evidence of diverticular formation, polyps or other neoplasms, vascular malformation, or any other abnormality. The instrument was then withdrawn, the patient tolerated the procedure well and was transferred out of the Endoscopy Suite awake and in good condition to continue recovery under observation. DARYA MELISSA MD Dec 21, 2016 17:36
[2016-12-21] MEDS: SOD CHLORIDE 0.45% 1,000 ML IV SCH (18:26)
[2016-12-21] MEDS: CEFTRIAXONE 1 GM/50 ML (PMX) 50 ML IVPB SCH (18:31)
[2016-12-21] MEDS: ATORVASTATIN 10 MG TAB PO SCH (21:00)
[2016-12-21] MEDS: MESALAMINE (SR) 250 MG CAP PO SCH (21:33)
[2016-12-21] MEDS ORDERED: BARIUM SULF 2% 450 ML BTL (BERRY SMOOTHIE) PO ONE (22:00)
[2016-12-22 02:27] VITALS: BP 103/61; RESP 18
[2016-12-22] MEDS: PANTOPRAZOLE (EC) 40 MG TAB PO SCH ×2 (06:00→14:51)
[2016-12-22] MEDS: HEPARIN 5,000 UNIT/0.5 ML VIAL SC SCH ×3 (06:00→22:00)
[2016-12-22] MEDS: SOD CHLORIDE 0.45% 1,000 ML IV SCH ×4 (06:06→21:00)
[2016-12-22] MEDS: LEVOTHYROXINE 50 MCG TAB PO SCH ×2 (06:07→11:22)
[2016-12-22 07:25] VITALS: BP 101/60; RESP 20
[2016-12-22] MEDS: ASPIRIN 81 MG TAB PO SCH (09:00)
[2016-12-22] MEDS: BUPROPION (SR) 100 MG TAB PO SCH ×2 (09:00→11:23)
[2016-12-22] MEDS: MESALAMINE (SR) 250 MG CAP PO SCH ×3 (09:00→21:01)
[2016-12-22] MEDS: HYDROmorphONE 0.5 MG/0.5 ML SYG IV PRN ×2 (12:21→12:56)
[2016-12-22] MEDS ORDERED: BARIUM SULFATE 0.1% 450 ML BTL (VOLUMEN) PO ONE (12:42)
[2016-12-22 12:43] VITALS: BP 103/53; PULSE 58; RESP 18
[2016-12-22] MEDS ORDERED: IOHEXOL 100 ML ONE (14:07)
[2016-12-22] MEDS ORDERED: IOHEXOL 350MG/ML 50 ML BTL ONE (14:07)
[2016-12-22] MEDS ORDERED: SOD CHLORIDE 0.9% 100 ML ONE (14:07)
[2016-12-22] MEDS ORDERED: GLUCAGON 1 MG INJ ONE (14:11)
[2016-12-22 14:44] VITALS: BP 101/58; PULSE 58; RESP 18
[2016-12-22] MEDS: ACETAMINOPHEN 325 MG TAB PO PRN ×2 (14:50→21:06)
--- NOTE | 2016-12-22 15:21 | PN ---
Date/Time of Note Date/Time of Note DATE: 12/22/16 TIME: 15:19 Assessment/Plan VTE Prophylaxis VTE Prophylaxis Intervention: ambulation Lines/Catheters IV Catheter Type (from Nrs): Saline Lock Assessment/Plan Chief Complaint/Hosp Course Patient is a 61-year-old female who presents with diffuse abdominal pain, found to have transverse colitis Assessment and plan Abdominal pain Transverse colitis IBD? Dyslipidemia Depression Hypothyroidism Overactive bladder Constipation -ulcerations and ileitis seen on colonoscopy, started on mesalamine and prn anti -spasmodics per GI -CT enterography today per GI -biopsy pending -fluids until after CT -pain control as needed -labs stable -f/u in AM Problems: Subjective 24 Hr Interval Summary Free Text/Dictation still cramping pain, tolerated colonoscopy well overnight. Exam/Review of Systems Vital Signs Vitals Vital Signs Date Time Temp Pulse Resp B/P Pulse Ox O2 Delivery O2 Flow Rate FiO2 12/22/16 14:44 98.2 58 18 101/58 96 12/21/16 18:01 Room Air 12/21/16 17:41 8.0 Intake and Output 12/21/16 12/21/16 12/22/16 15:00 23:00 07:00 Intake Total 340 ml 1680 ml 1400 ml Balance 340 ml 1680 ml 1400 ml Exam Physical exam General: Patient is laying in bed and answers questions appropriately Mentation: Patient is alert and oriented 4, Head: Normocephalic atraumatic Eyes: EOMI, pupils reactive to light Neck: Supple, nontender, midline Respiratory: Clear to auscultation bilaterally Cardiovascular: regular rate, no obvious murmurs Gastrointestinal: mild tenderness to palpation in the epigastric region, bowel sounds heard. Neurological: Moves all extremities spontaneously Skin: No new skin lesions Results Result Diagram: 12/22/16 0507 12/22/16 0507 Results 24 hrs Laboratory Tests Test 12/22/16 05:07 White Blood Count 8.6 Red Blood Count 3.57 L Hemoglobin 10.4 L Hematocrit 32.3 L Mean Corpuscular Volume 90.5 Mean Corpuscular Hemoglobin 29.1 Mean Corpuscular Hemoglobin Concent 32.2 Red Cell Distribution Width 13.3 Platelet Count 119 L Mean Platelet Volume 14.9 H Neutrophils % 75.0 Lymphocytes % 17.6 Monocytes % 6.7 Eosinophils % 0.1 Basophils % 0.1 Nucleated Red Blood Cells % 0.0 Neutrophils # 6.5 Lymphocytes # 1.5 Monocytes # 0.6 Eosinophils # 0.0 Basophils # 0.0 Nucleated Red Blood Cells # 0.0 Sodium Level 142 Potassium Level 3.9 Chloride Level 111 H Carbon Dioxide Level 26 Anion Gap 9 Blood Urea Nitrogen 7 Creatinine 0.58 Glucose Level 98 Calcium Level 8.5 Phosphorus Level 3.0 Magnesium Level 2.1 Medications Medications Current Medications Pantoprazole (Protonix Tab) 40 mg DAILY@06 PO Last administered on 12/22/16 14:51; Admin Dose 40 MG; Start 12/21/16 at 06:00 Ondansetron HCl (Zofran Inj) 4 mg Q6H PRN IV NAUSEA AND/OR VOMITING Last administered on 12/21/16 09:04; Admin Dose 4 MG; Start 12/20/16 at 17:30 Acetaminophen (Tylenol Tab) 650 mg Q6H PRN PO PAIN LEVEL 1-3 OR FEVER Last administered on 12/22/16 14:50; Admin Dose 650 MG; Start 12/20/16 at 17:30 Hydromorphone HCl (Dilaudid) 0.5 mg Q4H PRN IV SEVERE PAIN LEVEL 7-10 Last administered on 12/22/16 12:56; Admin Dose 0.5 MG; Start 12/20/16 at 17:30 Bisacodyl (Dulcolax) 5 mg DAILY PRN PO CONSTIPATION; Start 12/20/16 at 17:30 Heparin Sodium (Porcine) 5000 unit 5,000 unit Q8 SC ; Start 12/20/16 at 22:00 Ceftriaxone Sodium (Rocephin) 50 ml @ 100 mls/hr Q24H IVPB Last administered on 12/21/16 18:31; Admin Dose 100 MLS/HR; Start 12/20/16 at 18:00 Aspirin (Aspirin) 81 mg DAILY PO ; Start 12/21/16 at 09:00 Bupropion HCl (Wellbutrin Sr) 200 mg DAILY PO Last administered on 12/22/16 11:23; Admin Dose 200 MG; Start 12/21/16 at 09:00 Atorvastatin Calcium (Lipitor) 10 mg DAILY@21 PO ; Start 12/20/16 at 21:00 Ibuprofen (Motrin) 600 mg Q6H PRN PO PAIN; Start 12/21/16 at 07:00 Hyoscyamine (Levsin (Sl)) 0.125 mg Q4H PRN SL abd pain Last administered on 12:42; Admin Dose 0.125 MG; Start 12/21/16 at 17:30 Mesalamine (Pentasa) 1,000 mg TID PO Last administered on 12/22/16 14:51; Admin Dose 1,000 MG; Start 12/21/16 at 21:00 BRIAN BHANDARI Dec 22, 2016 15:21
[2016-12-22 16:00] VITALS: BP 102/59; PULSE 65; RESP 18
--- NOTE | 2016-12-22 17:11 | RADRPT ---
PROCEDURE: CT Abdomen and Pelvis with Contrast CLINICAL INDICATION: Pain, rule out Crohn's disease of small bowel TECHNIQUE: Transaxial images were obtained through the abdomen and pelvis on a multi-slice scanner following the intravenous administration of 125 ml of Omnipaque 350 contrast. No oral contrast had previously been given. Sagittal and coronal re-formations were subsequently reconstructed. One or more of the following dose reduction techniques were used: - Automated exposure control. - Adjustment of the mA and/or kV according to patient size. - Use of iterative reconstruction technique. Radiation dose: CTDIvol = 12.96 mGy; DLP = 695.88 mGy-cm. COMPARISON: 12/20/2016 FINDINGS: Lung bases: Discoid atelectasis is seen in the right posterior sulcus. Liver: The liver remains enlarged and appears fatty infiltrated with no focal lesion identified. Gallbladder: The wall is not thickened. No radiopaque stones are identified. Bile ducts: The intra and extrahepatic bile ducts are normal in caliber. Pancreas: Appears normal with no mass or inflammation evident. Spleen: Normal in size with no focal lesion. Adrenals: Normal with no mass identified. Kidneys, ureters and bladder: The kidneys enhance normally and are normal in size and there is no ma ss, pathological calcification, or hydronephrosis evident. There is no perinephric stranding. The ur eters are normal in caliber and no ureteroliths are identified. The bladder is suboptimally distende d but unremarkable.. Reproductive organs: The uterus is retroverted deviates slightly to the right of midline. No adnexal mass is evident. Stomach, bowel, and mesentery: The stomach is mildly distended with fluid. The small bowel is mildly distended with fluid and air. The bowel wall is not thickened. There are a few colonic diverticuli and there is fluid seen within the right colon but there is no evidence of bowel obstruction or infl ammation. No fistulization is evident. Appendix: Portions of an unremarkable appearing vermiform appendix are tentatively identified. Peritoneum: There is a small amount of free intraperitoneal fluid seen within the cul-de-sac. No la e air is evident. Aorta: Normal in caliber with no aneurysmal dilatation. IVC: Unremarkable. Lymph nodes: No pathologically enlarged nodes are identified. Osseous structures: The osseous elements appear intact. The sacroiliac joints appear unremarkable. IMPRESSION: 1. Since the previous CT of 12/20/2016, the patient appears to have ingested a considerable amount of water with the stomach, small bowel and right colon mildly distended with water. There are a few scattered colonic diverticuli but there is no evidence of bowel obstruction, fistulization, or infla mmation. The suspected bowel wall thickening involving the transverse colon on the previous study is no longer evident with better distension of the colon. 2. There is no evidence of urinary outflow obstruction or ureterolithiasis with a poorly distended b ut unremarkable appearing bladder. 3. The liver again appears enlarged and diffusely fatty infiltrated with no focal lesion. 4. Interval development of a small amount of free intraperitoneal fluid seen in the cul-de-sac. No free air is evident. 5. Increasing but mild discoid atelectasis seen in the right posterior sulcus. Physician Lola Date Time Electronically viewed and signed by Physician Lola on 12/22/2016 17:10 /
--- NOTE | 2016-12-22 17:56 | PN ---
Date/Time of Note Date/Time of Note DATE: 12/22/16 TIME: 17:55 Assessment/Plan VTE Prophylaxis VTE Prophylaxis Intervention: SCD's Lines/Catheters IV [facility] Saline Lock Assessment/Plan Chief Complaint/Hosp Course Summary Assessment and Plan: Assessment: Right flank pain Possible colitis R/o ischemic colitis Plan: Continue pentesa Await results of pathology and IBD panel Continue anti-spasmotic Patient seen in collaboration with Subjective: Course reviewed with nursing staff Patient interviewed and examined All labs, imaging and other results reviewed Patient not in room at the time evaluation will follow up with patient tomorrow, Problems: Exam/Review of Systems Vital Signs Vitals Vital Signs Date Time Temp Pulse Resp B/P Pulse Ox O2 Delivery O2 Flow Rate FiO2 12/22/16 14:44 98.2 58 18 101/58 96 12/21/16 18:01 Room Air 12/21/16 17:41 8.0 Intake and Output 12/21/16 12/21/16 12/22/16 15:00 23:00 07:00 Intake Total 340 ml 1680 ml 1400 ml Balance 340 ml 1680 ml 1400 ml Results Result Diagram: 12/22/16 0507 12/22/16 0507 Results 24 hrs Laboratory Tests Test 12/22/16 05:07 White Blood Count 8.6 Red Blood Count 3.57 L Hemoglobin 10.4 L Hematocrit 32.3 L Mean Corpuscular Volume 90.5 Mean Corpuscular Hemoglobin 29.1 Mean Corpuscular Hemoglobin Concent 32.2 Red Cell Distribution Width 13.3 Platelet Count 119 L Mean Platelet Volume 14.9 H Neutrophils % 75.0 Lymphocytes % 17.6 Monocytes % 6.7 Eosinophils % 0.1 Basophils % 0.1 Nucleated Red Blood Cells % 0.0 Neutrophils # 6.5 Lymphocytes # 1.5 Monocytes # 0.6 Eosinophils # 0.0 Basophils # 0.0 Nucleated Red Blood Cells # 0.0 Sodium Level 142 Potassium Level 3.9 Chloride Level 111 H Carbon Dioxide Level 26 Anion Gap 9 Blood Urea Nitrogen 7 Creatinine 0.58 Glucose Level 98 Calcium Level 8.5 Phosphorus Level 3.0 Magnesium Level 2.1 Medications Medications Current Medications Pantoprazole (Protonix Tab) 40 mg DAILY@06 PO Last administered on 12/22/16t 14:51; Admin Dose 40 MG; Start 12/21/16 at 06:00 Ondansetron HCl (Zofran Inj) 4 mg Q6H PRN IV NAUSEA AND/OR VOMITING Last administered on 12/21/16 09:04; Admin Dose 4 MG; Start 12/20/16 at 17:30 Acetaminophen (Tylenol Tab) 650 mg Q6H PRN PO PAIN LEVEL 1-3 OR FEVER Last administered on 12/22/16 14:50; Admin Dose 650 MG; Start 12/20/16 at 17:30 Hydromorphone HCl (Dilaudid) 0.5 mg Q4H PRN IV SEVERE PAIN LEVEL 7-10 Last administered on 12/22/16 12:56; Admin Dose 0.5 MG; Start 12/20/16 at 17:30 Bisacodyl (Dulcolax) 5 mg DAILY PRN PO CONSTIPATION; Start 12/20/16 at 17:30 Heparin Sodium (Porcine) 5000 unit 5,000 unit Q8 SC ; Start 12/20/16 at 22:00 Ceftriaxone Sodium (Rocephin) 50 ml @ 100 mls/hr Q24H IVPB Last administered on 12/21/16 18:31; Admin Dose 100 MLS/HR; Start 12/20/16 at 18:00 Aspirin (Aspirin) 81 mg DAILY PO ; Start 12/21/16 at 09:00 Bupropion HCl (Wellbutrin Sr) 200 mg DAILY PO Last administered on 12/22/16 11:23; Admin Dose 200 MG; Start 12/21/16 at 09:00 Atorvastatin Calcium (Lipitor) 10 mg DAILY@21 PO ; Start 12/20/16 at 21:00 Ibuprofen (Motrin) 600 mg Q6H PRN PO PAIN; Start 12/21/16 at 07:00 Hyoscyamine (Levsin (Sl)) 0.125 mg Q4H PRN SL abd pain Last administered on 12:42; Admin Dose 0.125 MG; Start 12/21/16 at 17:30 Mesalamine (Pentasa) 1,000 mg TID PO Last administered on 12/22/16 14:51; Admin Dose 1,000 MG; Start 12/21/16 at 21:00 ALEXANDRA SAWYER Dec 22, 2016 17:56
[2016-12-22] MEDS: CEFTRIAXONE 1 GM/50 ML (PMX) 50 ML IVPB SCH (18:20)
[2016-12-22 20:00] VITALS: BP 108/58; RESP 20
[2016-12-22] MEDS: ATORVASTATIN 10 MG TAB PO SCH (21:00)
[2016-12-23 02:43] VITALS: BP 102/56; RESP 18
[2016-12-23] MEDS: HEPARIN 5,000 UNIT/0.5 ML VIAL SC SCH ×2 (06:00→12:57)
[2016-12-23] MEDS: SOD CHLORIDE 0.45% 1,000 ML IV SCH (06:09)
[2016-12-23] MEDS: LEVOTHYROXINE 50 MCG TAB PO SCH (07:04)
[2016-12-23 07:32] VITALS: BP 125/74; RESP 20
[2016-12-23] MEDS: ASPIRIN 81 MG TAB PO SCH (09:00)
[2016-12-23] MEDS: PANTOPRAZOLE (EC) 40 MG TAB PO SCH (09:08)
[2016-12-23] MEDS: BUPROPION (SR) 100 MG TAB PO SCH (09:08)
[2016-12-23] MEDS: MESALAMINE (SR) 250 MG CAP PO SCH ×2 (09:08→12:16)
--- NOTE | 2016-12-23 10:23 | PN ---
Date/Time of Note Date/Time of Note DATE: 12/23/16 TIME: 10:21 Assessment/Plan VTE Prophylaxis VTE Prophylaxis Intervention: SCD's Lines/Catheters IV Catheter Type (from Nrsg): Saline Lock Assessment/Plan Chief Complaint/Hosp Course Summary Assessment and Plan: Assessment: Right flank pain Possible colitis pathology pending Fatty liver Plan: Pt cleared from GI point of view F/u with GI in 2 weeks to review pathology and IBD panel Continue Pentesa Continue anti-spasmotic PRN Patient seen in collaboration with Subjective: Course reviewed with nursing staff Patient interviewed and examined All labs, imaging and other results reviewed Patient with improvement of abd pain ok to d/c from GI point of view Continue pentesa and levsin f/u with GI in 2 weeks Problems: Exam/Review of Systems Vital Signs Vitals Vital Signs Date Time Temp Pulse Resp B/P Pulse Ox O2 Delivery O2 Flow Rate FiO2 12/23/16 07:32 98.7 65 20 125/74 96 12/22/16 16:00 Room Air 12/21/16 17:41 8.0 Intake and Output 12/22/16 12/22/16 12/23/16 15:00 23:00 07:00 Intake Total 750 ml 1300 ml Output Total 300 ml Balance -300 ml 750 ml 1300 ml Exam Constitutional: alert, oriented Psych: no complaints Head: atraumatic, normocephalic Eyes: nl conjunctiva ENMT: nl external ears & nose Neck: non-tender, supple Respiratory: clear to auscultation Cardiovascular: regular rate and rhythm Gastrointestinal: bowel sounds, soft, No ascites, No distended, No firm, No hepatomegaly, No mass, No rebound or guarding, No splenomegaly, No surgical scars, No tender Results Result Diagram: 12/23/1663712/23/16637 Results 24 hrs Laboratory Tests Test 12/23/16 06:38 White Blood Count 8.5 Red Blood Count 3.42 L Hemoglobin 9.9 L Hematocrit 31.2 L Mean Corpuscular Volume 91.2 Mean Corpuscular Hemoglobin 28.9 L Mean Corpuscular Hemoglobin Concent 31.7 L Red Cell Distribution Width 13.5 Platelet Count 105 L Mean Platelet Volume Neutrophils % 56.7 Lymphocytes % 33.5 Monocytes % 7.4 Eosinophils % 1.6 Basophils % 0.4 Nucleated Red Blood Cells % 0.0 Neutrophils # 4.8 Lymphocytes # 2.9 Monocytes # 0.6 Eosinophils # 0.1 Basophils # 0.0 Nucleated Red Blood Cells # 0.0 Sodium Level 142 Potassium Level 3.7 Chloride Level 109 Carbon Dioxide Level 29 Anion Gap 8 Blood Urea Nitrogen 6 L Creatinine 0.65 Glucose Level 87 Calcium Level 8.6 Phosphorus Level 2.9 Magnesium Level 2.0 Medications Medications Current Medications Pantoprazole (Protonix Tab) 40 mg DAILY@06 PO Last administered on 12/23/16 09:08; Admin Dose 40 MG; Start 12/21/16 at 06:00 Ondansetron HCl (Zofran Inj) 4 mg Q6H PRN IV NAUSEA AND/OR VOMITING Last administered on 12/21/16 09:04; Admin Dose 4 MG; Start 12/20/16 at 17:30 Acetaminophen (Tylenol Tab) 650 mg Q6H PRN PO PAIN LEVEL 1-3 OR FEVER Last administered on 12/22/16 21:06; Admin Dose 650 MG; Start 12/20/16 at 17:30 Hydromorphone HCl (Dilaudid) 0.5 mg Q4H PRN IV SEVERE PAIN LEVEL 7-10 Last administered on 12/22/16 12:56; Admin Dose 0.5 MG; Start 12/20/16 at 17:30 Bisacodyl (Dulcolax) 5 mg DAILY PRN PO CONSTIPATION; Start 12/20/16 at 17:30 Heparin Sodium (Porcine) 5000 unit 5,000 unit Q8 SC ; Start 12/20/16 at 22:00 Ceftriaxone Sodium (Rocephin) 50 ml @ 100 mls/hr Q24H IVPB Last administered on 12/22/16 18:20; Admin Dose 100 MLS/HR; Start 12/20/16 at 18:00 Aspirin (Aspirin) 81 mg DAILY PO ; Start 12/21/16 at 09:00 Bupropion HCl (Wellbutrin Sr) 200 mg DAILY PO Last administered on 12/23/16 09:08; Admin Dose 200 MG; Start 12/21/16 at 09:00 Atorvastatin Calcium (Lipitor) 10 mg DAILY@21 PO ; Start 12/20/16 at 21:00 Ibuprofen (Motrin) 600 mg Q6H PRN PO PAIN; Start 12/21/16 at 07:00 Hyoscyamine (Levsin (Sl)) 0.125 mg Q4H PRN SL abd pain Last administered on 12:42; Admin Dose 0.125 MG; Start 12/21/16 at 17:30 Mesalamine 1000 mg 1,000 mg TID PO Last administered on 12/23/16 09:08; Admin Dose 1,000 MG; Start 12/21/16 at 21:00 Sodium Chloride (1/2 NS) 1,000 ml @ 100 mls/hr Q10H IV Last administered on 06:09; Admin Dose 100 MLS/HR; Start 12/22/16 at 10:00 ALEXANDRA SAWYER Dec 23, 2016 10:23
[2016-12-23] MEDS ORDERED: HYOS0.1297 SL (11:05)
[2016-12-23] MEDS ORDERED: MESA500C PO (11:05)
--- NOTE | 2016-12-23 11:07 | PDOCDIS ---
Discharge Instructions CONDITION Patient Condition: Stable HOME CARE INSTRUCTIONS: Diet Instructions: Low Fat /Cholesterol ACTIVITY: Activity Restrictions: Slowly Increase Activity FOLLOW UP/APPOINTMENTS Follow-up Plan 1. Follow up with Dr. Mullen, gastroenterology within 2 weeks for biopsy results 2. Please follow up with your primary care provider as soon as possible. BRIAN BHANDARI Dec 23, 2016 11:07
--- NOTE | 2016-12-23 12:32 | DS ---
Date/Time of Note Date/Time of Note DATE: 12/23/16 TIME: 12:32 Discharge Summary Admission/Discharge Info Admit Date/Time Dec 20, 2016 at 12:33 Discharge Date/Time Patient Condition: Stable Hx of Present Illness Patient is a 61-year-old female with past medical history significant for dyslipidemia, depression, hypothyroidism, and overactive bladder who presents to [facility] for 1 day onset of diffuse generalized abdominal pain also radiating to the back and to the flank. Patient states that the pain originally started in the epigastric area and then slowly moved to the right and to the back. Patient states that she has tried multiple things such as Bentyl, and bowel rest however nothing relieved the pain and patient decided to go to ED. Patient also states that she has a history of gastritis precipitated by NSAID use as well as her estrogen medication. Patient states that currently her abdominal pain is a 6 out of 10, barely affected by pain medication. Patient currently denies any chest pain, nausea, vomiting, shortness of breath. PMH: Dyslipidemia, gastritis, depression, hypothyroidism, overactive bladder, constipation PSH: Umbilical hernia surgery, inguinal surgery, right knee arthroscopy Meds: Simvastatin, aspirin, bupropion, estrogen, Synthroid, mirabegron Hospital Course Patient is a 61-year-old female who presents with diffuse abdominal pain and found to have possible inflammatory bowel disease per GI upon colonoscopy. Patient received colonoscopy which found an isolated small ulceration in the descending colon as well as small aphthous ulcerations in the terminal ileum with edema and erythema. Biopsies were obtained and patient is to follow-up with GI within 2 weeks for biopsy results. Patient at this time was started on Pentasa and Levsin as needed for pain and IBD serology was sent out. Patient is currently stable and will be sent home with a prescription for Pentasa and Levsin as well as to continue her other medications. Patient wishes not to have any narcotic pain medication. Patient will also follow-up with her primary care provider as soon as possible and resources were given to contact JACKIE Robison. discharge diagnosis Abdominal pain Transverse colitis Inflammatory bowel disease Dyslipidemia Depression Hypothyroidism Overactive bladder Constipation Home Meds Active Scripts Mesalamine* (Pentasa*) 500 Mg Capsule.sa, 1000 MG PO TID for 30 Days, #180 CAP Prov:BRIAN BHANDARI 12/23/16 Hyoscyamine Sulfate* (Hyoscyamine Sulfate*) 0.125 Mg Tab.subl, 0.125 MG SL Q4H Y for abd pain for 14 Days, #60 Prov:BRIAN BHANDARI 12/23/16 Reported Medications Estrogens,Conj/Bazedoxifene (Duavee 0.45-20 mg Tablet) 1 Each Tablet, 1 EACH PO DAILY, TAB 12/20/16 Aspirin* (Aspirin* Chew) 81 Mg Tab.chew, 81 MG PO DAILY, TAB.CHEW 12/20/16 Mirabegron (Myrbetriq) 50 Mg Tab.er.24h, 50 MG PO DAILY, TAB 12/20/16 Simvastatin* (Zocor*) 20 Mg Tablet, 20 MG PO QHS, #30 TAB 12/20/16 Bupropion Hcl* (Wellbutrin SR*) 200 Mg Tablet.sa, 200 MG PO DAILY, TAB.SA 12/20/16 Levothyroxine Sodium* (Synthroid*) 50 Mcg Tablet, 50 MCG PO BEFORE BREAKFAST, # 30 TAB 12/20/16 Follow-up Plan 1. Follow up with Dr. Mullen, gastroenterology within 2 weeks for biopsy results 2. Please follow up with your primary care provider as soon as possible. Primary Care Provider Not On Staff Doctor Time spent on discharge: > 30 minutes Pending Labs Laboratory Tests Test 12/23/16 06:38 White Blood Count 8.510^3/ul (4.8-10.8) Red Blood Count 3.4210^6/ul (4.20-5.40) Hemoglobin 9.9g/dl (12.0-16.0) Hematocrit 31.2% (37.0-47.0) Mean Corpuscular Volume 91.2fl (82.0-101.0) Mean Corpuscular Hemoglobin 28.9pg (29.0-33.0) Mean Corpuscular Hemoglobin Concent 31.7g/dl (32.0-37.0) Red Cell Distribution Width 13.5% (11.5-14.5) Platelet Count 87871^3/UL (140-415) Mean Platelet Volume fl (7.4-10.4) Neutrophils % 56.7% (39.0-77.0) Lymphocytes % 33.5% (15.0-51.0) Monocytes % 7.4% (0.0-11.0) Eosinophils % 1.6% (0.0-7.0) Basophils % 0.4% (0.0-2.0) Nucleated Red Blood Cells % 0.0/100WBC (0.0-0.0) Neutrophils # 4.810^3/ul (1.6-7.5) Lymphocytes # 2.910^3/ul (0.8-2.9) Monocytes # 0.610^3/ul (0.3-0.9) Eosinophils # 0.110^3/ul (0.0-0.5) Basophils # 0.010^3/ul (0.0-0.1) Nucleated Red Blood Cells # 0.010^3/ul (0.0-0.0) Sodium Level 142mmol/L (135-144) Potassium Level 3.7mmol/L (3.5-5.1) Chloride Level 109mmol/L (97-110) Carbon Dioxide Level 29mmol/L (21-31) Anion Gap 8 (8-16) Blood Urea Nitrogen 6mg/dl (7-20) Creatinine 0.65mg/dl (0.44-1.00) Glucose Level 87mg/dl (70-220) Calcium Level 8.6mg/dl (8.4-10.2) Phosphorus Level 2.9mg/dl (2.5-4.9) Magnesium Level 2.0mg/dl (1.7-2.5) BRIAN BHANDARI Dec 23, 2016 12:32
== END 2016-12-23 13:30 | disposition home or self-care (01) | DRG 392 ==
LOC: E/R 08:41 → MS2 12:33
PROVIDERS: ADMIT Hospitalist; ATTEND Hospitalist
PROC: 0DBL8ZX Excision of Transverse Colon, Via Natural or Artificial Opening Endoscopic, Diagnostic (ICD-10-PCS; 2016-12-21)
PROC: 0DBB8ZX Excision of Ileum, Via Natural or Artificial Opening Endoscopic, Diagnostic (ICD-10-PCS; 2016-12-21)
PROC: 0DBM8ZX Excision of Descending Colon, Via Natural or Artificial Opening Endoscopic, Diagnostic (ICD-10-PCS; 2016-12-21)
PROC: 0DBK8ZX Excision of Ascending Colon, Via Natural or Artificial Opening Endoscopic, Diagnostic (ICD-10-PCS; principal; 2016-12-21 19:30)
DX: K52.89 Other specified noninfective gastroenteritis and colitis (principal); K63.3 Ulcer of intestine; K76.0 Fatty (change of) liver, not elsewhere classified; K50.00 Crohn's disease of small intestine without complications; K59.00 Constipation, unspecified; N32.81 Overactive bladder; F32.9 Major depressive disorder, single episode, unspecified; E78.5 Hyperlipidemia, unspecified; E03.9 Hypothyroidism, unspecified
CPT/HCPCS: 36415; 71010; 71275; 74177; 76705; 80048; 80053; 81001; 83605; 83690; 83735; 84100; 84484; 85025; 85610; 85730; 86021; 93005; 96374; 96375; 96376; J0696; J1100; J1170; J1200; J1610; J1644; J2405; J2765; J3010; J3030; J3480; J7030; J7040; Q9967